=== PATIENT | male | born 1960 | race Caucasian/White ===

== ENCOUNTER → 2016-12-30 | Outpatient (CLI) | payer BC ==
--- NOTE | 2016-12-30 12:08 | ECHOS ---
STRESS ECHOCARDIOGRAM DATE OF SERVICE: 12/30/2016 MEDICATIONS:: BASELINE HEART RATE: 69 BASELINE BLOOD PRESSURE: 189/86 MAXIMUM HEART RATE: 148 MAXIMUM BLOOD PRESSURE: 205/94 85% MPHR: 140 100% MPHR: 165 METS: 11.6 MAXIMUM STAGE REACHED: IV TOTAL EXERCISE TIME: 10 minutes INDICATIONS: Chest pain. CLINICAL INFORMATION: Patient was exercised for a total of 10 minutes. Peak heart rate of 148 was achieved. Maximum blood pressure pf 205/94 mmHg was noted. Resting EKG shows normal sinus rhythm with normal DE interval and QRS duration and normal ST-T waves. During exercise J- point depression with upsloping ST segments are noted. The baseline echocardiographic images reveal normal left ventricular chamber size with normal left ventricular systolic function. In the immediate postexercise, normal increase in the wall thickness and contractility is noted. FINAL IMPRESSION: 1. This is a stress echocardiographic study is negative for stress-induced ischemia. 2. EKG portion of the stress test shows equivocal EKG changes which could be secondary to hypertension. 3. Patient's exercise tolerance is normal. 4. Patient did not complain of any anginal pain during the test. MMODL / IJN: [id number] /
== END | disposition home or self-care (01) ==
LOC: RADNMMAIN 10:07
PROVIDERS: ATTEND Family Medicine
DX: R07.9 Chest pain, unspecified (principal)
CPT/HCPCS: 93017; 93350

== ENCOUNTER 2020-01-02 21:33 | Emergency (ER) | payer BC ==
[2020-01-02] MEDS ORDERED: ACETAMINOPHEN TAB 500 MG TAB PO STA (22:10)
[2020-01-02] MEDS ORDERED: SODIUM CHLORIDE 0.9% 1,000 ML IV ONE (22:11)
--- NOTE | 2020-01-02 22:44 | XR ---
EXAMINATION TYPE: XR chest 1V portable DATE OF EXAM: 01/02/2020 COMPARISON: NONE HISTORY: Cough and fever TECHNIQUE: FINDINGS: Heart is normal. There is some coarsening of interstitial markings in the right upper lobe. There is no pulmonary consolidation. There is no heart failure. There is no pleural effusion. IMPRESSION: There is some mild interstitial infiltrate right upper lobe. No heart failure seen. Normal heart.
--- NOTE | 2020-01-02 22:47 | ED ---
General Adult HPI - General Chief complaint: Fever Stated complaint: Fever Time Seen by Provider: 01/02/20 21:53 Source: patient Mode of arrival: ambulatory Limitations: no limitations - History of Present Illness Initial comments: 59-year-old male patient presents to the emergency department today for evaluation of fever that started a little over a week ago. Patient states he is also had nasal congestion, cough, and chest congestion. Denies any shortness of breath. States he has had some nausea with no vomiting or diarrhea. Denies abdominal pain. States today his temperature reached 105F so he thought he did come in for evaluation. He had been evaluated at urgent care twice this week and initially tested negative for COVID though he was retested a couple of days ago he is currently waiting for that result. Patient did complete dosing of hydrochloroquine, azithromycin, and dexamethasone. Patient states he does not feel better after receiving the medications. She has been taking Avapro for an for fever control. States he's had decreased appetite has been eating or drinking much. Patient denies any recent rash, back pain, numbness, tingling, dizziness, weakness, hematuria, dysuria, urinary urgency, urinary frequency, headache, visual changes, or any other complaints. - Related Data Home Medications Medication Instructions Recorded Confirmed Ibuprofen [Motrin] 800 mg PO TID PRN 01/25/16 01/02/20 Losartan/Hydrochlorothiazide 1 tab PO DAILY 01/02/20 01/02/20 [Losartan-Hctz 100-25 mg Tab] Allergies Allergy/AdvReac Type Severity Reaction Status Date / Time No Known Allergies Allergy Verified 01/02/20 23:29 Review of Systems ROS Statement: Those systems with pertinent positive or pertinent negative responses have been documented in the HPI. ROS Other: All systems not noted in ROS Statement are negative. Past Medical History Past Medical History: No Reported History History of Any Multi-Drug Resistant Organisms: None Reported Past Surgical History: Orthopedic Surgery, Tonsillectomy Additional Past Surgical History / Comment(s): ORIF RIGHT ANKLE. BILATERAL KNEE SCOPES. Past Anesthesia/Blood Transfusion Reactions: No Reported Reaction Smoking Status: Never smoker Past Alcohol Use History: Occasional Past Drug Use History: None Reported General Exam Limitations: no limitations General appearance: alert, in no apparent distress, other (This is a well- developed, well-nourished adult male patient in no acute distress. Vital signs upon presentation are temperature 101.7F, pulse 96, respirations 20, blood pressure 137/85, pulse ox 99% on room air.) Eye exam: Present: normal appearance, PERRL, EOMI. Absent: scleral icterus, conjunctival injection, periorbital swelling ENT exam: Present: normal exam, normal oropharynx, mucous membranes moist Respiratory exam: Present: normal lung sounds bilaterally. Absent: respiratory distress, wheezes, rales, rhonchi, stridor Cardiovascular Exam: Present: regular rate, normal rhythm, normal heart sounds. Absent: systolic murmur, diastolic murmur, rubs, gallop, clicks GI/Abdominal exam: Present: soft, normal bowel sounds. Absent: distended, tenderness, guarding, rebound, rigid Neurological exam: Present: alert, oriented X3, CN II-XII intact Psychiatric exam: Present: normal affect, normal mood Skin exam: Present: warm, dry, intact, normal color. 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 Patient has tested negative for chlamydia urgent care. He did complete dosing of hydroxychloroquine, azithromycin, and dexamethasone. Physical examination reveals clear equal lung sounds. Upper abdomen was tender. V/S are improved after antipyretics. Labs are reviewed, COVID testing is negative, wbc count elevated, potassium low. Xray showed mild interstitial infiltrate right upper lobe. Given elevated alk phos, liver enzymes, fever, and abdominal tende rness did perform US RUQ which showed gall stones, no sign for cholecystitis. I did discuss findings and results with the patient. We did discuss possible Covid infection with false negative testing. We also discussed infection with other viral illness especially since is ill with similar symptoms. We did send blood culture this is pending. He is instructed to alternate Tylenol and Motrin for fever control. Increase fluids. Follow-up with his primary care physician. Return parameters were discussed in detail. He verbalizes understanding and agrees with this plan. - Lab Data Result diagrams: 01/02/20 22:46 01/02/20 22:46 Lab Results 01/02/20 01/02/20 01/02/20 Range/Units 22:46 22:46 22:46 WBC 13.4 H (3.8-10.6) k/uL RBC 5.21 (4.30-5.90) m/uL Hgb 16.7 (13.0-17.5) gm/dL Hct 47.5 (39.0-53.0) % MCV 91.1 (80.0-100.0) fL MCH 32.0 (25.0-35.0) pg MCHC 35.2 (31.0-37.0) g/dL RDW 12.1 (11.5-15.5) % Plt Count 264 (150-450) k/uL MPV 6.9 Neutrophils % 87 % Lymphocytes % 4 % Monocytes % 5 % Eosinophils % 1 % Basophils % 3 % Neutrophils # 11.7 H (1.3-7.7) k/uL Lymphocytes # 0.5 L (1.0-4.8) k/uL Monocytes # 0.7 (0-1.0) k/uL Eosinophils # 0.1 (0-0.7) k/uL Basophils # 0.4 H (0-0.2) k/uL Sodium 133 L (137-145) mmol/L Potassium 3.0 L (3.5-5.1) mmol/L Chloride 100 (98-107) mmol/L Carbon Dioxide 25 (22-30) mmol/L Anion Gap 8 mmol/L BUN 29 H (9-20) mg/dL Creatinine 0.90 (0.66-1.25) mg/dL Est GFR (CKD-EPI)AfAm >90 (>60 ml/min/1.73 sqM) Est GFR (CKD-EPI)NonAf >90 (>60 ml/min/1.73 sqM) Glucose 114 H (74-99) mg/dL Calcium 8.4 (8.4-10.2) mg/dL Total Bilirubin 0.6 (0.2-1.3) mg/dL AST 51 (17-59) U/L ALT 69 H (4-49) U/L Alkaline Phosphatase 150 H (38-126) U/L Total Protein 6.1 L (6.3-8.2) g/dL Albumin 3.5 (3.5-5.0) g/dL Coronavirus (PCR) Not Detected (Not Detectd) Influenza Type A RNA (Not Detectd) Influenza Type B (PCR) (Not Detectd) 01/02/20 Range/Units 23:24 WBC (3.8-10.6) k/uL RBC (4.30-5.90) m/uL Hgb (13.0-17.5) gm/dL Hct (39.0-53.0) % MCV (80.0-100.0) fL MCH (25.0-35.0) pg MCHC (31.0-37.0) g/dL RDW (11.5-15.5) % Plt Count (150-450) k/uL MPV Neutrophils % % Lymphocytes % % Monocytes % % Eosinophils % % Basophils % % Neutrophils # (1.3-7.7) k/uL Lymphocytes # (1.0-4.8) k/uL Monocytes # (0-1.0) k/uL Eosinophils # (0-0.7) k/uL Basophils # (0-0.2) k/uL Sodium (137-145) mmol/L Potassium (3.5-5.1) mmol/L Chloride (98-107) mmol/L Carbon Dioxide (22-30) mmol/L Anion Gap mmol/L BUN (9-20) mg/dL Creatinine (0.66-1.25) mg/dL Est GFR (CKD-EPI)AfAm (>60 ml/min/1.73 sqM) Est GFR (CKD-EPI)NonAf (>60 ml/min/1.73 sqM) Glucose (74-99) mg/dL Calcium (8.4-10.2) mg/dL Total Bilirubin (0.2-1.3) mg/dL AST (17-59) U/L ALT (4-49) U/L Alkaline Phosphatase (38-126) U/L Total Protein (6.3-8.2) g/dL Albumin (3.5-5.0) g/dL Coronavirus (PCR) (Not Detectd) Influenza Type A RNA Not Detected (Not Detectd) Influenza Type B (PCR) Not Detected (Not Detectd) - Radiology Data Radiology results: report reviewed, image reviewed Ultrasound of the right upper quadrant is obtained. Report is reviewed in its entirety. Impression by Dr. Kerr shows multiple gallstones. No dilated x-raypelvis and fatty infiltration of the liver. One view x-ray of the chest is obtained. Report was reviewed in its entirety. Impression by Dr. Kerr shows mild interstitial infiltrate right upper lobe. No heart failure. Normal heart. Disposition Clinical Impression: Viral respiratory illness, Gallstones Disposition: HOME SELF-CARE Condition: Good Instructions (If sedation given, give patient instructions): Gallstones (ED), Fever in Adults (ED), Viral Syndrome (ED) Additional Instructions: Increase fluids. Alternate Tylenol and Motrin for fever control. Follow-up through primary care physician for further evaluation of your current illness as well as to discuss gallstones and follow-up with surgery. Return to the emergency department immediately for any new, worsening, or concerning symptoms. Is patient prescribed a controlled substance at d/c from ED?: No Referrals: Brennan Arzola MD [Primary Care Provider] - 1-2 days Time of Disposition: 00:19
[2020-01-02 22:57] LABS: Basophils # (A) 0.4 k/uL (0-0.2); Basophils % (A) 3 %; Eosinophils # (A) 0.1 k/uL (0-0.7); Eosinophils % (A) 1 %; HCT 47.5 % (39.0-53.0); HGB 16.7 gm/dL (13.0-17.5); Lymphocytes # (A) 0.5 k/uL (1.0-4.8); Lymphocytes % (A) 4 %; MCHC 35.2 g/dL (31.0-37.0); MCV 91.1 fL (80.0-100.0); Mean Platelet Volume 6.9; Monocytes # (A) 0.7 k/uL (0-1.0); Monocytes % (A) 5 %; Neutrophils # (A) 11.7 k/uL (1.3-7.7); Neutrophils % (A) 87 %; Platelet Count 264 k/uL (150-450); RBC 5.21 m/uL (4.30-5.90); RDW 12.1 % (11.5-15.5); WBC 13.4 k/uL (3.8-10.6)
[2020-01-02 23:12] LABS: ALT 69 U/L (4-49); AST 51 U/L (17-59); African American GFR (CKD) >90 (>60 ml/min/1.73 sqM); Albumin 3.5 g/dL (3.5-5.0); Alkaline Phosphatase 150 U/L (38-126); Anion Gap 8 mmol/L; Blood Urea Nitrogen 29 mg/dL (9-20); Calcium 8.4 mg/dL (8.4-10.2); Carbon Dioxide 25 mmol/L (22-30); Chloride 100 mmol/L (98-107); Glucose 114 mg/dL (74-99); Non-African American GFR(CKD) >90 (>60 ml/min/1.73 sqM); Sodium 133 mmol/L (137-145); Total Bilirubin 0.6 mg/dL (0.2-1.3); Total Protein 6.1 g/dL (6.3-8.2)
[2020-01-02] MEDS ORDERED: POTASSIUM CHLORIDE ER 20 MEQ TAB.ER PO STA (23:14)
[2020-01-02 23:59] VITALS: BP 126/73; PULSE 71; RESP 18; TEMP 98.5
--- NOTE | 2020-01-03 00:06 | US ---
EXAMINATION TYPE: US abdomen limited DATE OF EXAM: 01/02/2020 COMPARISON: NONE CLINICAL HISTORY: RUQ pain. RUQ pain x couple weeks. Hx of kidney stones. EXAM MEASUREMENTS: Liver Length: 17.24 cm Gallbladder Wall: 0.34 cm CBD: 0.25 cm Right Kidney: 11.4 x 6.1 x 5.8 cm Pancreas: Slightly limited due to patient body habitus and gas. Liver: Appears to be coarse, increased attenuation. Increased echogenicity. Measures upper limits of normal Gallbladder: Wall measures 0.34 cm, upper limits of normal. Multiple hyperechoic foci with posterior shadowing and twinkle artifact seen within the gallbladder. Evidence for sonographic Sánchez's sign: Patient feels tenderness in RUQ. CBD: Portions seen appear to be wnl. Right Kidney: No hydronephrosis or masses seen IMPRESSION: Multiple gallstones. No dilated ducts. There is probably some fatty infiltration of the l iver.
== END 2020-01-03 00:28 | disposition home or self-care (01) ==
LOC: EC 21:33
DX: Z20.828 Contact with and (suspected) exposure to other viral communicable diseases (principal); J98.8 Other specified respiratory disorders; K80.20 Calculus of gallbladder without cholecystitis without obstruction; Z79.899 Other long term (current) drug therapy
CPT/HCPCS: 36415; 71045; 76705; 80053; 85025; 87040; 87502; 87635; 96360; 99284

== ENCOUNTER → 2020-01-08 | Outpatient (CLI) | payer BC ==
--- NOTE | 2020-01-08 15:16 | CT ---
EXAMINATION TYPE: CT angio chest DATE OF EXAM: 01/08/2020 2:57 PM COMPARISON: Chest x-ray 6 days ago HISTORY: elevated d-dimer, SOB, fatigue, fever. Loss of taste for [address] DLP: 391.7 mGycm Automated exposure control for dose reduction was used. CONTRAST: CTA scan of the thorax is performed with IV Contrast, patient injected with 65cc mL of Isovue 370, pu lmonary embolism protocol. MIP images are created and reviewed. FINDINGS: LUNGS: Multifocal areas of groundglass opacity are present bilaterally involving upper and lower lung s. There is posterior dependent atelectasis and/or consolidation in the lower lobes with tiny right g reater than left pleural effusions. No pneumothorax seen bilaterally. MEDIASTINUM: There is suboptimal bolus without convincing CT evidence for acute pulmonary embolism. There are no greater than 1 cm hilar or mediastinal lymph nodes. No cardiomegaly is seen. Trace per icardial effusion right anterior-inferior aspect OTHER: Rim calcified gallstones in gallbladder. Underlying scoliotic curvature with mild to moderate multilevel spurring in the spine. IMPRESSION: Multifocal groundglass opacities bilaterally consistent with covid-19 infection given pat ient's symptoms. Suboptimal study without convincing CT evidence for acute pulmonary embolism.
== END | disposition home or self-care (01) ==
LOC: RADCTMAIN 14:17
PROVIDERS: ATTEND Nurse Practitioner Adult Health
DX: J98.4 Other disorders of lung (principal)
CPT/HCPCS: 71275; Q9967

== ENCOUNTER → 2020-12-31 | Outpatient (CLI) | payer BC ==
--- NOTE | 2020-12-31 12:18 | CT ---
EXAMINATION TYPE: CT abdomen pelvis wo con DATE OF EXAM: 12/31/2020 COMPARISON: None INDICATION: umbilical hernia DLP: 1106 mGycm, Automated exposure control for dose reduction was used. CONTRAST: 0 mL of Isovue 300. Study performed without Oral Contrast TECHNIQUE: Axial images were obtained from above the diaphragm to the pubic rami in the axial plane a t 5 mm thick sections. Reconstructed images are reviewed on the computer in the coronal plane. FINDINGS: Limited CT sections are obtained the lung bases. The lung bases are clear. CT ABDOMEN: Liver: Normal Spleen: Normal Pancreas: Normal Adrenal glands: The adrenal glands are normal. Gallbladder: Gallstones are present. Kidneys: No masses are evident. No hydronephrosis is present. No cysts are present. Delayed images were obtained through the kidneys, which remain unremarkable. Aorta: Normal Inferior vena cava: Normal. CT PELVIS: Fat-containing periumbilical hernia is present. This is slightly increased in density. Manny e incarceration could be considered. Opening is 1.0 cm. Loops of bowel within the abdomen and pelvis are normal. There are loops of bowel which are incom pletely distended or lack oral contrast limiting their evaluation. Appendix: Normal as visualized. Urinary bladder: Normal. Genitourinary structures: Prostate is prominent. Osseous structures: No suspicious lytic or sclerotic lesions. Spondylosis of L5 is present. IMPRESSIONS: 1. Small periumbilical hernia has mild increased stranding at the opening. Some early incarceration may be present. 2. Prominent prostate. 3. Spondylolysis of L5
== END | disposition home or self-care (01) ==
LOC: RADCTMAIN 09:57
PROVIDERS: ATTEND Family Medicine
DX: K42.9 Umbilical hernia without obstruction or gangrene (principal)
CPT/HCPCS: 74176

== ENCOUNTER → 2023-07-20 | Day surgery (SDC) | payer BC ==
[2023-07-19 08:43] VITALS: BMI 30.2
[~2023-07-20] MED LIST: ALPRAZolam 0.25 MG TAB PO PRN; ALPRAZolam 0.5 MG TAB PO PRN; ASPIRIN 325 MG TAB PO STA; ATORVASTATIN 80 MG TAB PO STA; HEPARIN SODIUM 1,000 UN/ML (10ML VL) ONE; HEPARIN SODIUM,PORCINE (1 ML) 2,500 UNIT in SODIUM CHLORIDE 0.9% 250 ML IRRIGATION PRN; HEPARIN SODIUM,PORCINE 10,000 UNIT in SODIUM CHLORIDE 0.9% 1,000 ML IRRIGATION PRN; LIDOCAINE 1% INJ 10MG/ML (20 ML MDV) ONE; NITROGLYCERIN SL TABS 0.4 MG TAB SUBLINGUAL PRN; RX INFO: IV CONTRAST WAS GIVEN 1 EACH MISC MISCELLANE PRN; SODIUM CHLORIDE 0.9% 1,000 ML IV SCH; VERAPAMIL 2.5 MG/ML 2 ML AMP ONE; fentaNYL (PF) 50 MCG/ML 2 ML AMP ONE
[2023-07-20 09:34] VITALS: TEMP 98.2
[2023-07-20] MEDS: SODIUM CHLORIDE 0.9% 1,000 ML in EMPTY BAG 1 BAG IV SCH (09:38)
[2023-07-20] MEDS: IV FLUID CONTINUATION 1,000 ML IV ONE (09:39)
[2023-07-20] MEDS: fentaNYL (PF) 50 MCG/1 ML VIAL IVP ONE ×2 (10:56→11:03)
[2023-07-20] MEDS: MIDAZOLAM 2 MG/2 ML VIAL IVP ONE ×3 (10:56→11:04)
[2023-07-20] MEDS: LIDOCAINE 1% INJ 10MG/ML (20 ML MDV) SQ ONE (10:58)
[2023-07-20] MEDS: VERAPAMIL 2.5 MG/ML 4 ML VIAL INTRAARTER ONE (10:59)
[2023-07-20] MEDS: HEPARIN SODIUM 1,000 UN/ML (10ML VL) IVP ONE (11:01)
--- NOTE | 2023-07-20 11:13 | P.PCN ---
Date of Procedure: 07/20/23 Operative Findings: CARDIAC CATHETERIZATION PERFORMING PHYSICIAN: Yaya Kenny MD, RPVI PROCEDURE PERFORMED: 1. Selective right and left coronary angiogram 2. Ultrasound-guided access of the right radial artery INDICATION: Abnormal stress echocardiogram with evidence of high risk findings COMPLICATION: None APPROACH: Right radial artery LEVEL OF SEDATION: Moderate with a sedation length of 10 minutes PROCEDURE DESCRIPTION: After obtaining an informed consent, the patient was brought to cardiac photographic laboratory supervisor. Local anesthesia was performed using lidocaine subcutaneously. The right radial artery was cannulated using Seldinger technique, the guidewire passed easily, following that we advanced a 5-[place] sheath dilator assembly, the wire and dilator were removed and sheath was flushed. Following that, 2 mg of verapamil along with 5000 unit heparin were given. Selective right and left coronary angiogram using a 6-[place] JR4 and JL 3.5 catheters. The procedure was completed there was no complication. SELECTIVE CORONARY ANGIOGRAM: The right coronary artery: Large-caliber vessel and a dominant vessel and appears to be angiographically normal but distally bifurcates into PDA and PLV branches and both appear to be angiographically normal Left main: Is angiographically normal The left circumflex: Large-caliber vessel nondominant vessel and appears to be normal and gives rise into an OM1 which appears to be normal The left anterior descending artery: Large-caliber vessel that is angiographically normal gives rise into a large diagonal branch which seems to be normal CONCLUSION: 1. Normal coronary angiogram POSTPROCEDURE MANAGEMENT: Medical treatment
[2023-07-20] MEDS: IOPAMIDOL-370 100ML BTL INJ ONE (11:15)
[2023-07-20 12:12] VITALS: RESP 18
[2023-07-20 14:15] VITALS: PULSE 64
[2023-07-20 15:04] VITALS: BP 143/75
== END ==
LOC: CATHCVL 08:56
PROVIDERS: ATTEND Internal Medicine Interventional Cardiology
DX: R94.39 Abnormal result of other cardiovascular function study (principal); E66.3 Overweight; I10 Essential (primary) hypertension; G47.33 Obstructive sleep apnea (adult) (pediatric); Z82.49 Family history of ischemic heart disease and other diseases of the circulatory system; Z79.899 Other long term (current) drug therapy; Z79.82 Long term (current) use of aspirin
CPT/HCPCS: 93454; 76937; 99152; C1769; C1894; J2250; J2001; J1644; Q9967; J3010

== ENCOUNTER 2024-04-24 13:09 | Emergency (ER) | payer BC ==
[2024-04-24] MEDS: SODIUM CHLORIDE 0.9% 1,000 ML IV ONE ×2 (13:41→16:03)
[2024-04-24] MEDS: ONDANSETRON 4 MG/2 ML VIAL IVP STA (13:43)
[2024-04-24] MEDS: HYDROmorphone 0.5 MG/0.5 ML SYRINGE IVP STA (13:45)
--- NOTE | 2024-04-24 13:46 | ED ---
Abdominal Pain HPI <Dilma Martinez - Last Filed: 04/24/24 18:08> - General Source: patient, RN notes reviewed Mode of arrival: ambulatory Limitations: no limitations <Sushant Peña - Last Filed: 04/25/24 08:58> - General Chief Complaint: Abdominal Pain Stated Complaint: Abd/back pain Time Seen by Provider: 04/24/24 13:22 - History of Present Illness Initial Comments: 63-year-old male presents emergency department with chief complaint of abdominal pain that started earlier today. Patient states been gradually worsening states he feels very bloated, distended states he did not like he had to have a bowel movement but was unable to have a bowel movement. Patient states he had a cholecystectomy and hernia repair. Patient states that his surgeon was Dr. Hamlin. Patient denies any chest pain or shortness of breath. Patient has no dysuria patient states that he did have vomiting this morning. In which he normally has multiple secondary to prior cholecystectomy. (Sushant Peña) - Related Data Home Medications Medication Instructions Recorded Confirmed Losartan/Hydrochlorothiazide 1 tab PO DAILY 01/02/20 07/19/23 [Losartan-Hctz 100-25 mg Tab] Aspirin EC [Ecotrin Low Dose] 81 mg PO DAILY 07/19/23 07/20/23 Multivit-Minerals/FA/Lycopene 1 each PO DAILY 07/19/23 07/19/23 [One-A-Day Men's 50 Plus Tablet] Tamsulosin HCl [Flomax] 0.4 mg PO DAILY 07/19/23 07/19/23 Allergies Allergy/AdvReac Type Severity Reaction Status Date / Time No Known Allergies Allergy Verified 04/24/24 13:18 Review of Systems ROS Other: All systems not noted in ROS Statement are negative. <Dilma Martinez - Last Filed: 04/24/24 18:08> ROS Other: All systems not noted in ROS Statement are negative. <Sushant Peña - Last Filed: 04/25/24 08:58> ROS Statement: Those systems with pertinent positive or pertinent negative responses have been documented in the HPI. Past Medical History Past Medical History: Hypertension Additional Past Medical History / Comment(s): HAS BEEN HAVING EPISODES OF CHEST PAIN AND SOB. SEE DR[facility] History of Any Multi-Drug Resistant Organisms: None Reported Past Surgical History: Hernia Repair, Orthopedic Surgery, Tonsillectomy Additional Past Surgical History / Comment(s): ORIF RIGHT ANKLE. BILATERAL KNEE SCOPES. COLONOSCOPY Past Anesthesia/Blood Transfusion Reactions: No Reported Reaction Past Psychological History: No Psychological Hx Reported Smoking Status: Never smoker Past Alcohol Use History: None Reported Past Drug Use History: None Reported - Past Family History Mother Family Medical History: No Reported History <Sushant Peña - Last Filed: 04/25/24 08:58> General Exam Limitations: no limitations General appearance: alert, in no apparent distress Head exam: Present: atraumatic, normocephalic, normal inspection Eye exam: Present: normal appearance, PERRL, EOMI. Absent: scleral icterus, conjunctival injection, periorbital swelling ENT exam: Present: normal exam, mucous membranes moist Neck exam: Present: normal inspection, full ROM. Absent: tenderness, meningismus, lymphadenopathy Respiratory exam: Present: normal lung sounds bilaterally. Absent: respiratory distress, wheezes, rales, rhonchi, stridor Cardiovascular Exam: Present: regular rate, normal rhythm, normal heart sounds. Absent: systolic murmur, diastolic murmur, rubs, gallop, clicks GI/Abdominal exam: Present: soft, distended, tenderness, normal bowel sounds. Absent: guarding, rebound, rigid <Sushant Peña - Last Filed: 04/25/24 08:58> Course Vital Signs 04/24/24 04/24/24 04/24/24 13:15 13:58 15:48 Temperature 97.9 F Pulse Rate 102 H 69 68 Respiratory 20 16 17 Rate Blood Pressure 201/100 157/89 160/89 O2 Sat by Pulse 98 98 98 Oximetry 04/24/24 18:12 Temperature 97.4 F L Pulse Rate 64 Respiratory 16 Rate Blood Pressure 166/90 O2 Sat by Pulse 99 Oximetry Medical Decision Making - Lab Data Result diagrams: 04/24/24 13:47 04/24/24 13:47 <Dilma Martinez - Last Filed: 04/24/24 18:08> - Lab Data Result diagrams: 04/24/24 13:47 04/24/24 13:47 <Sushant Peña - Last Filed: 04/25/24 08:58> - Medical Decision Making Was pt. sent in by a medical professional or institution ([facility], [employer], urgent care, hospital, or care home...) When possible be specific @ -No Did you speak to anyone other than the patient for history (EMS, parent, family, police, friend...)? What history was obtained from this source @ -No Did you review nursing and triage notes (agree or disagree)? Why? @ -I reviewed and agree with nursing and triage notes Were old charts reviewed (outside hosp., previous admission, EMS record, old EKG, old radiological studies, urgent care reports/EKG's, care home records)? Report findings @ -No old charts were reviewed Differential Diagnosis (chest pain, altered mental status, abdominal pain women, abdominal pain men, vaginal bleeding, weakness, fever, dyspnea, syncope, headache, dizziness, GI bleed, back pain, seizure, CVA, palpatations, mental health, musculoskeletal)? @ -Differential Abdominal Pain Men: Appendicitis, cholecystitis, diverticulosis, ischemic bowel, pancreatitis, hepatitis, UTI, gastroenteritis, AAA, incarcerated hernia, bowel obstruction, constipation, inflammatory bowel, hepatitis, peptic ulcer disease, splenic infarction, perforated viscus, testicular torsion, this is not meant to be an all-inclusive list EKG interpreted by me (3pts min.). @ -None X-rays interpreted by me (1pt min.). @ -None done CT interpreted by me (1pt min.). @ -CT abdomen pelvis shows diverticulosis without evidence of diverticulitis no acute process U/S interpreted by me (1pt. min.). @ -None done What testing was considered but not performed or refused? (CT, X-rays, U/S, labs)? Why? @ -None What meds were considered but not given or refused? Why? @ -None Did you discuss the management of the patient with other professionals (professionals i.e. [facility], [employer], lab, RT, psych nurse, social service coordinator, commercial hvac technician, teacher, chief media officer, rn field case manager)? Give summary @ -No Was smoking cessation discussed for >3mins.? @ -No Was critical care preformed (if so, how long)? @ -No Were there social determinants of health that impacted care today? How? (Homelessness, low income, unemployed, alcoholism, drug addiction, transport ation, low edu. Level, literacy, decrease access to med. care, [facility], rehab)? @ -No Was there de-escalation of care discussed even if they declined (Discuss DNR or withdrawal of care, Hospice)? DNR status @ -No What co-morbidities impacted this encounter? (DM, HTN, Smoking, COPD, CAD, Cancer, CVA, ARF, Chemo, Hep., AIDS, mental health diagnosis, sleep apnea, morbid obesity)? @ -None Was patient admitted / discharged? Hospital course, mention meds given and route, prescriptions, significant lab abnormalities, going to OR and other pertinent info. @ -Case signed out to Dr. Martinez pending urinalysis results. (Sushant Peña) - Lab Data Lab Results 04/24/24 04/24/24 04/24/24 Range/Units 13:47 13:47 13:47 WBC 14.3 H (3.8-10.6) k/uL RBC 5.18 (4.30-5.90) m/uL Hgb 16.4 (13.0-17.5) gm/dL Hct 48.1 (39.0-53.0) % MCV 92.9 (80.0-100.0) fL MCH 31.6 (25.0-35.0) pg MCHC 34.0 (31.0-37.0) g/dL RDW 12.5 (11.5-15.5) % Plt Count 264 (150-450) k/uL MPV 7.8 Neutrophils % 87 % Lymphocytes % 7 % Monocytes % 4 % Eosinophils % 0 % Basophils % 1 % Neutrophils # 12.4 H (1.3-7.7) k/uL Lymphocytes # 1.0 (1.0-4.8) k/uL Monocytes # 0.6 (0-1.0) k/uL Eosinophils # 0.1 (0-0.7) k/uL Basophils # 0.1 (0-0.2) k/uL Manual Slide Review Performed RBC Morphology Normal PT 10.8 (10.0-12.5) sec INR 1.0 (<1.2) APTT 21.7 L (22.0-30.0) sec Sodium 140 (137-145) mmol/L Potassium 3.0 L (3.5-5.1) mmol/L Chloride 100 (98-107) mmol/L Carbon Dioxide 26 (22-30) mmol/L Anion Gap 14 mmol/L BUN 19 (9-20) mg/dL Creatinine 1.01 (0.66-1.25) mg/dL Est GFR (CKD-EPI)AfAm >90 (>60 ml/min/1.73 sqM) Est GFR (CKD-EPI)NonAf 80 (>60 ml/min/1.73 sqM) Glucose 126 H (74-99) mg/dL Lactic Ac Sepsis Rflx Plasma Lactic Acid Gilbert (0.7-2.0) mmol/L Calcium 9.6 (8.4-10.2) mg/dL Total Bilirubin 0.7 (0.2-1.3) mg/dL AST 30 (17-59) U/L ALT 56 H (4-49) U/L Alkaline Phosphatase 135 H (38-126) U/L Total Protein 7.3 (6.3-8.2) g/dL Albumin 4.8 (3.5-5.0) g/dL Amylase 76 (30-110) U/L Lipase 185 (23-300) U/L Urine Color Urine Appearance (Clear) Urine pH (5.0-8.0) Ur Specific Brewer (1.001-1.035) Urine Protein (Negative) Urine Glucose (UA) (Negative) Urine Ketones (Negative) Urine Blood (Negative) Urine Nitrite (Negative) Urine Bilirubin (Negative) Urine Urobilinogen (<2.0) mg/dL Ur Leukocyte Esterase (Negative) Urine RBC (0-5) /hpf Urine WBC (0-5) /hpf Ur Squamous Epith Cells (0-4) /hpf Urine Mucus (None) /hpf 04/24/24 04/24/24 04/24/24 Range/Units 13:47 14:16 16:06 WBC (3.8-10.6) k/uL RBC (4.30-5.90) m/uL Hgb (13.0-17.5) gm/dL Hct (39.0-53.0) % MCV (80.0-100.0) fL MCH (25.0-35.0) pg MCHC (31.0-37.0) g/dL RDW (11.5-15.5) % Plt Count (150-450) k/uL MPV Neutrophils % % Lymphocytes % % Monocytes % % Eosinophils % % Basophils % % Neutrophils # (1.3-7.7) k/uL Lymphocytes # (1.0-4.8) k/uL Monocytes # (0-1.0) k/uL Eosinophils # (0-0.7) k/uL Basophils # (0-0.2) k/uL Manual Slide Review RBC Morphology PT (10.0-12.5) sec INR (<1.2) APTT (22.0-30.0) sec Sodium (137-145) mmol/L Potassium (3.5-5.1) mmol/L Chloride (98-107) mmol/L Carbon Dioxide (22-30) mmol/L Anion Gap mmol/L BUN (9-20) mg/dL Creatinine (0.66-1.25) mg/dL Est GFR (CKD-EPI)AfAm (>60 ml/min/1.73 sqM) Est GFR (CKD-EPI)NonAf (>60 ml/min/1.73 sqM) Glucose (74-99) mg/dL Lactic Ac Sepsis Rflx Y Plasma Lactic Acid Gilbert 4.1 H* (0.7-2.0) mmol/L Calcium (8.4-10.2) mg/dL Total Bilirubin (0.2-1.3) mg/dL AST (17-59) U/L ALT (4-49) U/L Alkaline Phosphatase (38-126) U/L Total Protein (6.3-8.2) g/dL Albumin (3.5-5.0) g/dL Amylase (30-110) U/L Lipase (23-300) U/L Urine Color Light Yellow Urine Appearance Clear (Clear) Urine pH 6.5 (5.0-8.0) Ur Specific Brewer 1.013 (1.001-1.035) Urine Protein Negative (Negative) Urine Glucose (UA) Negative (Negative) Urine Ketones Negative (Negative) Urine Blood Large H (Negative) Urine Nitrite Negative (Negative) Urine Bilirubin Negative (Negative) Urine Urobilinogen <2.0 (<2.0) mg/dL Ur Leukocyte Esterase Negative (Negative) Urine RBC >182 H (0-5) /hpf Urine WBC 2 (0-5) /hpf Ur Squamous Epith Cells <1 (0-4) /hpf Urine Mucus Rare H (None) /hpf 04/24/24 Range/Units 16:22 WBC (3.8-10.6) k/uL RBC (4.30-5.90) m/uL Hgb (13.0-17.5) gm/dL Hct (39.0-53.0) % MCV (80.0-100.0) fL MCH (25.0-35.0) pg MCHC (31.0-37.0) g/dL RDW (11.5-15.5) % Plt Count (150-450) k/uL MPV Neutrophils % % Lymphocytes % % Monocytes % % Eosinophils % % Basophils % % Neutrophils # (1.3-7.7) k/uL Lymphocytes # (1.0-4.8) k/uL Monocytes # (0-1.0) k/uL Eosinophils # (0-0.7) k/uL Basophils # (0-0.2) k/uL Manual Slide Review RBC Morphology PT (10.0-12.5) sec INR (<1.2) APTT (22.0-30.0) sec Sodium (137-145) mmol/L Potassium (3.5-5.1) mmol/L Chloride (98-107) mmol/L Carbon Dioxide (22-30) mmol/L Anion Gap mmol/L BUN (9-20) mg/dL Creatinine (0.66-1.25) mg/dL Est GFR (CKD-EPI)AfAm (>60 ml/min/1.73 sqM) Est GFR (CKD-EPI)NonAf (>60 ml/min/1.73 sqM) Glucose (74-99) mg/dL Lactic Ac Sepsis Rflx Plasma Lactic Acid Gilbert 1.8 (0.7-2.0) mmol/L Calcium (8.4-10.2) mg/dL Total Bilirubin (0.2-1.3) mg/dL AST (17-59) U/L ALT (4-49) U/L Alkaline Phosphatase (38-126) U/L Total Protein (6.3-8.2) g/dL Albumin (3.5-5.0) g/dL Amylase (30-110) U/L Lipase (23-300) U/L Urine Color Urine Appearance (Clear) Urine pH (5.0-8.0) Ur Specific Brewer (1.001-1.035) Urine Protein (Negative) Urine Glucose (UA) (Negative) Urine Ketones (Negative) Urine Blood (Negative) Urine Nitrite (Negative) Urine Bilirubin (Negative) Urine Urobilinogen (<2.0) mg/dL Ur Leukocyte Esterase (Negative) Urine RBC (0-5) /hpf Urine WBC (0-5) /hpf Ur Squamous Epith Cells (0-4) /hpf Urine Mucus (None) /hpf Disposition Is patient prescribed a controlled substance at d/c from ED?: No Time of Disposition: 18:09 <Dilma Martinez - Last Filed: 04/24/24 18:08> <Sushant Peña - Last Filed: 04/25/24 08:58> Clinical Impression: Hematuria, Abdominal pain Disposition: HOME SELF-CARE Condition: Stable Instructions (If sedation given, give patient instructions): Hematuria (ED) Additional Instructions: Please follow-up with the primary care doctor and the urologist for the blood in your urine. Have them recheck a urine sample to ensure the blood has cleared. Return to the emergency department for any new or worsening symptoms Referrals: Sergio Arzola MD [Primary Care Provider] - 1-2 days
[2024-04-24 14:12] LABS: ALT 56 U/L (4-49); AST 30 U/L (17-59); African American GFR (CKD) >90 (>60 ml/min/1.73 sqM); Albumin 4.8 g/dL (3.5-5.0); Alkaline Phosphatase 135 U/L (38-126); Amylase 76 U/L (30-110); Anion Gap 14 mmol/L; Blood Urea Nitrogen 19 mg/dL (9-20); Calcium 9.6 mg/dL (8.4-10.2); Carbon Dioxide 26 mmol/L (22-30); Chloride 100 mmol/L (98-107); Glucose 126 mg/dL (74-99); Lipase 185 U/L (23-300); Non-African American GFR(CKD) 80 (>60 ml/min/1.73 sqM); Sodium 140 mmol/L (137-145); Total Bilirubin 0.7 mg/dL (0.2-1.3); Total Protein 7.3 g/dL (6.3-8.2)
[2024-04-24 14:15] LABS: Partial Thromboplastin Time 21.7 sec (22.0-30.0); Prothrombin Time 10.8 sec (10.0-12.5)
--- NOTE | 2024-04-24 15:31 | CT ---
EXAMINATION TYPE: CT abdomen pelvis w con DATE OF EXAM: 04/24/2024 COMPARISON: 12/31/2020 CLINICAL INDICATION: Male, 63 years old with history of abdominal pain; PHH, Pt states pain to his ab d and lower back since this am. TECHNIQUE: Performed without Oral Contrast and with IV Contrast, patient injected with 100ml mL of Isovue 300. CT DLP: [address] CTDI: mGy Automated exposure control for dose reduction was used. FINDINGS: The lung bases are clear. The gallbladder surgically absent. There is no biliary ductal dilatation. There is no focal mass or organomegaly involving the liver, pancreas, spleen or adrenal glands. There is moderate liver steatosis. There is no solid renal mass or hydronephrosis and there is homogeneous contrast enhancement of the r enal parenchyma. There is mild perinephric stranding surrounding the left kidney raising the question of prior obstruction. The caliber the abdominal aorta is normal is no retroperitoneal adenopathy or hemorrhage. The bowel loops are normal in caliber and there is no evidence of dilatation or obstruction. No infla mmatory changes are identified in the bowel wall or mesentery. There is mild diverticulosis of the de scending and sigmoid colon without CT evidence of acute diverticulitis. There is no free intraperitoneal air or fluid. No pelvic mass, free fluid, abscess or adenopathy. There is mild prostatic hypertrophy The osseous structures and soft tissues are intact. IMPRESSION: 1. Moderate liver steatosis. 2. Mild diverticulosis without evidence of acute diverticulitis. 3. Mild prostatic hypertrophy [facility], , 04/24/2024 3:29 PM
[2024-04-24 15:35] LABS: Basophils # (A) 0.1 k/uL (0-0.2); Basophils % (A) 1 %; Eosinophils # (A) 0.1 k/uL (0-0.7); Eosinophils % (A) 0 %; HCT 48.1 % (39.0-53.0); HGB 16.4 gm/dL (13.0-17.5); Lymphocytes % (A) 7 %; MCH 31.6 pg (25.0-35.0); MCV 92.9 fL (80.0-100.0); Mean Platelet Volume 7.8; Monocytes # (A) 0.6 k/uL (0-1.0); Monocytes % (A) 4 %; Neutrophils # (A) 12.4 k/uL (1.3-7.7); Neutrophils % (A) 87 %; Platelet Count 264 k/uL (150-450); RBC 5.18 m/uL (4.30-5.90); RDW 12.5 % (11.5-15.5); WBC 14.3 k/uL (3.8-10.6)
[2024-04-24 16:18] LABS: RBC Morphology Normal
[2024-04-24 17:13] LABS: Appearance,Urine Clear (Clear); Bilirubin,Urine Negative (Negative); Blood,Urine Large (Negative); Color,Urine Light Yellow; Glucose,Urine (UA) Negative (Negative); Ketones,Urine Negative (Negative); Leukocyte Esterase,Urine Negative (Negative); Mucus,Urine Rare /hpf; Nitrite,Urine Negative (Negative); PH, Urine 6.5 (5.0-8.0); Protein,Urine Negative (Negative); RBC,Urine >182 /hpf (0-5); Specific Gravity,Urine 1.013 (1.001-1.035); Squamous Epithelial Cell,Urine <1 /hpf (0-4); Urobilinogen,Urine <2.0 mg/dL (<2.0); WBC,Urine 2 /hpf (0-5)
[2024-04-24 18:13] VITALS: BP 166/90; PULSE 64; RESP 16; TEMP 97.4
== END 2024-04-24 18:15 | disposition home or self-care (01) ==
LOC: EC 13:09
DX: R10.9 Unspecified abdominal pain (principal); R31.9 Hematuria, unspecified
CPT/HCPCS: 36415; 80053; 82150; 83605; 83690; 85025; 85610; 85730; 81001; 74177; 99284; 96374; 96375; 96361; J2405; J1171; Q9967